=== PATIENT | female | born 1985 | race American Indian/Alaskan Native ===

== ENCOUNTER 2017-10-14 03:04 | Emergency (ER) | payer MEDICAID ==
[~2017-10-14] VITALS: Ht 160 cm; Wt 80.0 kg
[2017-10-14] MEDS ORDERED: LORazepam 2 mg/ml vial IV ONE (03:15)
[2017-10-14] MEDS ORDERED: BIRTHCONTROL (03:21)
[2017-10-14] MEDS ORDERED: BUTA-284 (03:21)
[2017-10-14] MEDS ORDERED: DULO-31 PO (03:21)
[2017-10-14] MEDS ORDERED: HEMP OIL (03:21)
[2017-10-14] MEDS ORDERED: FOLI0.4T2 PO (03:21)
[2017-10-14] MEDS ORDERED: [UNRECOGNIZED DRUG - REMARK] (03:21)
[2017-10-14] MEDS ORDERED: ondansetron/PF 4mg/2ml inj IV ONE (03:40)
[2017-10-14 05:07] VITALS: BP 129/61
== END 2017-10-14 05:09 | disposition home or self-care (01) ==
LOC: ER 03:05
DX: G43.909 Migraine, unspecified, not intractable, without status migrainosus (principal); R56.9 Unspecified convulsions; M06.9 Rheumatoid arthritis, unspecified; M79.7 Fibromyalgia; Z79.899 Other long term (current) drug therapy
CPT/HCPCS: 96374; 96375; 99284; J2060; J2405

== ENCOUNTER 2017-10-19 09:31 | Outpatient (CLI) | payer MEDICAID ==
[~2017-10-19 09:31] MED LIST: BIRTHCONTROL; BUTA-284; DULO-31 PO; FOLI0.4T2 PO; HEMP OIL; [UNRECOGNIZED DRUG - REMARK]
== END 2017-10-19 23:59 | disposition home or self-care (01) ==
LOC: RAD 09:31
PROVIDERS: ATTEND General Practice
DX: R56.9 Unspecified convulsions (principal); G56.00 Carpal tunnel syndrome, unspecified upper limb; E66.9 Obesity, unspecified; Z68.32 Body mass index [BMI] 32.0-32.9, adult; Z87.820 Personal history of traumatic brain injury
CPT/HCPCS: 95819

== ENCOUNTER 2017-10-24 21:55 | Emergency (ER) | payer MEDICAID ==
[~2017-10-24] VITALS: Ht 154.9 cm; Wt 79.8 kg
[2017-10-24 22:05] VITALS: BP 142/92
== END 2017-10-24 22:42 | disposition home or self-care (01) ==
LOC: ER 21:56
DX: Z00.00 Encounter for general adult medical examination without abnormal findings (principal)
CPT/HCPCS: 36415; 82607; 82746; 99284